=== PATIENT | male | born 1940 | race Caucasian/White ===

== ENCOUNTER 2019-12-24 09:30 | Inpatient (IN) | payer MEDICARE, OTHER ==
[~2019-12-24] VITALS: Ht 185.4 cm; Wt 87.8 kg
[2019-12-24 10:53] VITALS: BP 116/80
[2019-12-24] MEDS ORDERED: PLEASE ENTER HEIGHT AND WEIGHT MC SCH (11:00)
[2019-12-24] MEDS ORDERED: PLEASE ENTER ALLERGIES MC SCH (11:00)
[2019-12-24] MEDS ORDERED: FERR324T5 PO (11:24)
[2019-12-24] MEDS ORDERED: DILT60CA PO (11:24)
[2019-12-24] MEDS ORDERED: MAGN400T36 PO (11:24)
[2019-12-24] MEDS ORDERED: PANT40TA5 PO (11:24)
[2019-12-24] MEDS ORDERED: MULT-658 PO (11:24)
[2019-12-24] MEDS ORDERED: GLUC1TAB21 PO (11:24)
[2019-12-24] MEDS ORDERED: APIX5TAB PO (11:24)
[2019-12-24] MEDS: PANTOPROZOLE 40MG TABLET PO SCH (11:30)
[2019-12-24] MEDS ORDERED: DOFETILIDE 125 MCG CAPSULE PO SCH (11:30)
[2019-12-24] MEDS: APIXABAN 5 MG TABLET PO SCH (11:30)
[2019-12-24] MEDS ORDERED: DILTIAZEM 60 MG CAP.ER.12H PO SCH (11:30)
[2019-12-24 11:38] LABS: ANION GAP 8 mmol/L (5-15); CALCIUM 9.1 mg/dL (8.5-10.1); CHLORIDE 107 mmol/L (98-107); CHOLESTEROL, TOTAL 182 mg/dL (140-239); CREATININE 1.23 mg/dL (0.7-1.3)
[2019-12-24 11:42] LABS: FREE T4 (FREE THYROXINE) 1.16 ng/dL (0.76-1.46); HDL CHOL % 34 % (26-37); HDL CHOLESTEROL (DIRECT) 61 mg/dL (40-60); LDL CHOLESTEROL,CALCULATED 107 mg/dL (54-169); LDL/HDL RATIO 1.8 (0.5-3.0); TRIGLYCERIDES 72 mg/dL (50-200); TROPONIN I 0.026 ng/mL (0.000-0.045); VLDL CHOLESTEROL 14 mg/dL (0-25)
[2019-12-24 13:47] VITALS: BP 110/73
[2019-12-24] MEDS: AMIODARONE 200 MG TABLET PO SCH (16:48)
[2019-12-24 20:30] VITALS: BP 107/62
[2019-12-24] MEDS: SODIUM CHLORIDE FLUSH 10ML SYR IVF SCH (20:30)
[2019-12-25 00:23] VITALS: BP 115/77
[2019-12-25] MEDS: AMIODARONE 200 MG TABLET PO SCH ×3 (00:25→17:25)
[2019-12-25] MEDS: APIXABAN 5 MG TABLET PO SCH ×3 (00:25→21:02)
[2019-12-25 07:56] VITALS: BP 120/84
[2019-12-25] MEDS: PANTOPROZOLE 40MG TABLET PO SCH (08:44)
[2019-12-25] MEDS: SODIUM CHLORIDE FLUSH 10ML SYR IVF SCH ×2 (08:44→21:00)
[2019-12-25 14:15] VITALS: BP 117/85
[2019-12-25 20:43] VITALS: BP 131/87
[2019-12-26 01:44] VITALS: BP 128/81
[2019-12-26] MEDS: AMIODARONE 200 MG TABLET PO SCH ×3 (01:47→16:08)
[2019-12-26 08:29] VITALS: BP 135/87
[2019-12-26] MEDS: APIXABAN 5 MG TABLET PO SCH ×2 (08:38→21:49)
[2019-12-26] MEDS: PANTOPROZOLE 40MG TABLET PO SCH (08:38)
[2019-12-26] MEDS: SODIUM CHLORIDE FLUSH 10ML SYR IVF SCH ×2 (08:38→21:00)
[2019-12-26 14:27] VITALS: BP 126/77
[2019-12-26 21:48] VITALS: BP 126/85
[2019-12-27 00:09] VITALS: BP 131/88
[2019-12-27] MEDS: AMIODARONE 200 MG TABLET PO SCH ×2 (00:10→08:50)
[2019-12-27 07:43] VITALS: BP 115/80
[2019-12-27] MEDS: PANTOPROZOLE 40MG TABLET PO SCH (08:50)
[2019-12-27] MEDS: APIXABAN 5 MG TABLET PO SCH (08:50)
[2019-12-27] MEDS: SODIUM CHLORIDE FLUSH 10ML SYR IVF SCH (08:51)
[2019-12-27] MEDS ORDERED: AMIO200T42 PO (11:36)
[2019-12-27 13:04] VITALS: BP 113/75
== END 2019-12-27 17:00 | disposition home or self-care (01) | DRG 309 ==
LOC: 5SO 10:05 → DCLOUNGE 12-27 13:33
PROVIDERS: ADMIT Internal Medicine Cardiovascular Disease; ATTEND Internal Medicine Cardiovascular Disease
DX: I48.0 Paroxysmal atrial fibrillation (principal); D68.69 Other thrombophilia; I48.92 Unspecified atrial flutter; K21.9 Gastro-esophageal reflux disease without esophagitis; Z87.891 Personal history of nicotine dependence
CPT/HCPCS: 36415; 71046; 80048; 80061; 83735; 84100; 84439; 84443; 84484; 85014; 85018; 93005; G0378

== ENCOUNTER → 2020-10-23 | Outpatient (CLI) | payer MEDICARE, OTHER ==
[~2020-10-23] MED LIST: AMIO200T42 PO; APIX5TAB PO; DILT60CA PO; FERR324T5 PO; GLUC1TAB21 PO; MAGN400T36 PO; MULT-658 PO; PANT40TA6 PO
== END | disposition home or self-care (01) ==
LOC: STAR 14:13
PROVIDERS: ATTEND Internal Medicine Cardiovascular Disease
DX: Z20.828 Contact with and (suspected) exposure to other viral communicable diseases (principal)
CPT/HCPCS: 87635

== ENCOUNTER 2020-10-28 07:54 | Observation (INO) | payer MEDICARE, OTHER ==
[~2020-10-28] VITALS: Ht 185.4 cm; Wt 90.0 kg
[2020-10-28] MEDS ORDERED: HYDROmorphone 1 MG/ML, 1ML INJ IVPush PRN (08:00)
[2020-10-28] MEDS ORDERED: PROMETHAZINE 25 MG/ML, 1ML IVPush PRN (08:00)
[2020-10-28] MEDS ORDERED: ACETAMINOPHEN 325 MG TABLET PO PRN (08:00)
[2020-10-28] MEDS ORDERED: EPHEDRINE 50 MG/ML, 1ML IVPush PRN (08:00)
[2020-10-28] MEDS ORDERED: hydrALAzine 20 MG/ML, 1ML IV PRN (08:00)
[2020-10-28] MEDS ORDERED: FENTANYL PF 100 MCG/2ML IV PRN (08:00)
[2020-10-28] MEDS ORDERED: ONDANSETRON 2MG/ML, 2ML IVPush PRN (08:00)
[2020-10-28] MEDS ORDERED: LABETALOL 5MG/ML, 20ML IV PRN (08:00)
[2020-10-28] MEDS ORDERED: OXYcodone 5 MG/5 ML ORAL.SOL UDC PO PRN (08:00)
[2020-10-28 08:30] VITALS: BP 122/93
[2020-10-28] MEDS ORDERED: SODIUM CHLORIDE 0.9% 1,000 ML IV SCH (08:30)
[2020-10-28 08:45] LABS: BASOPHILS % (AUTO) 1 % (0-1); EOSINOPHILS % (AUTO) 2 % (1-7); LYMPHOCYTES % (AUTO) 29 % (22-44); MEAN CORPUSCULAR HEMOGLOBIN 31.7 pg (27.5-34.5); MEAN CORPUSCULAR HGB CONC 33.8 g/dL (33.2-36.2); MONOCYTES % (AUTO) 9 % (2-9); NEUTROPHILS % (AUTO) 60 % (42-75); PLATELET COUNT 183 x10^3/uL (130-400); RED BLOOD COUNT 5.17 x10^6/uL (4.38-5.82); RED CELL DISTRIBUTION WIDTH 14.3 % (9.4-14.8)
[2020-10-28] MEDS ORDERED: PANT40TA6 PO (08:45)
[2020-10-28 08:54] LABS: ANION GAP 7 mmol/L (5-15); CALCIUM 9.4 mg/dL (8.5-10.1); CHLORIDE 108 mmol/L (98-107); CREATININE 1.09 mg/dL (0.7-1.3)
[2020-10-28 08:56] LABS: MD NO
[2020-10-28] MEDS ORDERED: FENTANYL PF 100 MCG/2ML ONE (09:04)
[2020-10-28] MEDS ORDERED: HEPARIN 1,000 UNITS/ML, 10ML ONE ×2 (09:22→09:36)
[2020-10-28] MEDS ORDERED: LIDOCAINE 1%, 20ML ONE (09:30)
[2020-10-28] MEDS ORDERED: PHENYLEPHRINE 10 MG/ML ONE (10:03)
[2020-10-28] MEDS ORDERED: ROCURONIUM 10MG/ML,5ML ONE (10:06)
[2020-10-28] MEDS ORDERED: SUCCINYLCHOLINE 20 MG/ML, 10ML ONE (10:06)
[2020-10-28] MEDS ORDERED: DEXAMETHASONE 4 MG/ML, 5ML ONE (10:06)
[2020-10-28] MEDS ORDERED: SUGAMMADEX 200 MG/2 ML IVPush ONE (10:06)
[2020-10-28] MEDS ORDERED: PROPOFOL 10 MG/ML, 20ML ONE (10:06)
[2020-10-28] MEDS ORDERED: ONDANSETRON 2MG/ML, 2ML ONE (10:06)
[2020-10-28] MEDS: APIXABAN 5 MG TABLET PO SCH ×2 (11:30→20:33)
[2020-10-28] MEDS ORDERED: APIXABAN 5 MG TABLET PO SCH (11:30)
[2020-10-28] MEDS ORDERED: APIXABAN 5 MG TABLET ONE ×2 (11:38→12:09)
[2020-10-28 14:40] VITALS: BP 111/76
[2020-10-28 20:25] VITALS: BP 109/77
[2020-10-28] MEDS: MULTIVITAMIN 1 TABLET PO SCH (20:33)
[2020-10-29 02:58] VITALS: BP 94/62
[2020-10-29 07:18] VITALS: BP 117/77
[2020-10-29] MEDS ORDERED: PANTOPRAZOLE 40MG TABLET PO SCH (09:00)
[2020-10-29] MEDS ORDERED: MAGNESIUM OXIDE 400 MG TABLET PO SCH (09:00)
[2020-10-29] MEDS ORDERED: FERROUS SULFATE 325 MG TABLET PO SCH (09:00)
[2020-10-29] MEDS: MULTIVITAMIN 1 TABLET PO SCH (10:08)
[2020-10-29] MEDS: APIXABAN 5 MG TABLET PO SCH (10:09)
== END 2020-10-29 13:44 | disposition home or self-care (01) ==
LOC: CACL 07:54 → ORIP 11:21 → 5SO 13:58 → DCLOUNGE 10-29 13:22
PROVIDERS: ADMIT Internal Medicine Cardiovascular Disease; ATTEND Internal Medicine Cardiovascular Disease
DX: I48.91 Unspecified atrial fibrillation (principal); I48.92 Unspecified atrial flutter; K21.9 Gastro-esophageal reflux disease without esophagitis; Z79.899 Other long term (current) drug therapy
CPT/HCPCS: 36415; 80048; 85025; 93306; 93613; 93655; 93656; 93657; 93662; C1730; C1732; C1759; C1766; C1893; C1894; G0378; J0330; J1100; J1644; J2370; J2405; J2704; J3010; J3490